=== PATIENT | male | born 1955 ===

== ENCOUNTER → 2021-06-08 15:07 | Outpatient (BNVA) | payer OTHER, SELFPAY | PROVIDERS: PCP Internal Medicine; Visit Provider Hospitalist ==

== ENCOUNTER 2022-04-19 08:47 | Outpatient (REF) | payer OTHER, SELFPAY ==
--- NOTE | 2022-04-19 15:48 | PFT_ITS ---
INDICATION: Dyspnea. SPIROMETRY: The FEV1 to FVC of 63% with an FEV1 of 2.92 L, which is 76% predicted and FVC of 4.67 L, which is 90% predicted. No significant response to bronchodilators noted. To note, the FEF 25-75 decreased to 32% predicted. Significant with small airways disease. The maximum voluntary ventilation 67% predicted. LUNG VOLUMES: Total lung capacity 103% predicted with residual volume 122% predicted. DIFFUSION CAPACITY: 1. DLCO 39% predicted. 2. PFT on 2020. INTERPRETATION: There is an obstructive ventilatory defect consistent with moderate COPD. The patient did have significant small airways disease, although no significant response to bronchodilators noted. There is a mild decrease in maximum voluntary ventilation, secondary to deconditioning. In addition to that, the patient does have a trend of air trapping due to the COPD and a severe diffusion impairment. When compared to 2020, there is a significant decrease in the FVC, significant decrease in the FEV1, a trend decrease in the total lung capacity, and no significant change in the diffusion capacity. Clinical correlation warranted. MD ANNALEE Medeiros/MODL / [id number]
== END 2022-04-19 08:48 | disposition home or self-care (01) ==
LOC: HO.RESP 08:47
PROVIDERS: PCP Internal Medicine; Visit Provider Hospitalist
DX: J44.9 Chronic obstructive pulmonary disease, unspecified (principal); R91.8 Other nonspecific abnormal finding of lung field; C85.90 Non-Hodgkin lymphoma, unspecified, unspecified site
CPT/HCPCS: 94060; 94727; 94729

== ENCOUNTER → 2023-03-31 08:46 | Outpatient (BNVA) | payer OTHER, SELFPAY | PROVIDERS: PCP Internal Medicine; Visit Provider Nurse Practitioner Family | DX: J41.8 Mixed simple and mucopurulent chronic bronchitis (principal); R06.00 Dyspnea, unspecified | CPT/HCPCS: 94618 ==

== ENCOUNTER → 2023-04-14 09:52 | Outpatient (BNVA) | payer OTHER, SELFPAY | PROVIDERS: PCP Internal Medicine; Visit Provider Hospitalist ==

== ENCOUNTER 2023-04-18 09:58 | Outpatient (REF) | payer OTHER, SELFPAY ==
--- NOTE | 2023-04-18 10:47 | PFT_ITS ---
FLOWS: 1. FEV1 84% of predicted at 3.12 L. 2. FVC 102% of predicted at 5.04 L. 3. FEV1 to FVC ratio of 0.62. 4. No bronchodilator testing was performed as patient used bronchodilator prior to testing. LUNG VOLUMES: 1. Total lung capacity 106% of predicted at 7.92 L. 2. Residual volume 106% of predicted at 2.64 L. 3. Slow vital capacity 106% of predicted at 5.28 L. 4. Expiratory reserve volume 70% of predicted at 1.02 L. 5. Diffusion capacity is moderately decreased. In comparison to pulmonary function test performed on April of 2022, FEV1 has improved by 0.20 L; FVC has increased by 0.37 L; total lung capacity was without significant changes; residual volume has decreased by 0.44 L; slow vital capacity has increased by 0.47 L; expiratory reserve volume has increased by 0.32 L; diffusion capacity has increased by 1.54 mL/minute per mmHg. IMPRESSION: Mild obstructive ventilatory defect. Bronchodilator testing was not performed as patient had bronchodilator before testing. Decreased diffusion capacity, suggests emphysema. Elvin Billy MD AP/MODL / [id number]
== END 2023-04-18 09:59 | disposition home or self-care (01) ==
LOC: HO.RESP 09:58
PROVIDERS: PCP Internal Medicine; Visit Provider Hospitalist
DX: R91.8 Other nonspecific abnormal finding of lung field (principal)
CPT/HCPCS: 94010; 94727; 94729

== ENCOUNTER 2023-06-09 15:31 | Outpatient (AMB) | payer OTHER, SELFPAY ==
[2023-06-09 15:33] VITALS: BP 138/62; PULSE 83; O2SAT 83; BMI 39.3
--- NOTE | 2023-06-09 15:33 | MHC.OFFVIS ---
Intake Vital Signs 06/09/23 15:33 Height 6 ft Weight 289 lb 14.526 oz BMI 39.3 BP 138/62 Blood Pressure Location Lt brachial Position Sitting Pulse 83 Pulse Source Pulse Oximeter Pulse Oximetry (%) 83 L Oxygen Delivery Method Room Air Intake Visit Reasons: [facility] - 06/26 Intake Note: Pt is going for hip replacement surgery and needs clearance. Shortness of breath on exertion. Allergies Penicillins Allergy (Verified 06/09/23 15:38) Unknown HPI [facility] - [facility] - 06/26 HPI Details Benton is a pleasant 67 year old male with a past medical history of COPD, pulmonary nodules, LEONIDAS on CPAP and Chronic Lymphocytic Lymphoma. Today he presents for perioperative pulmonary evaluation for a right total hip replacement scheduled for 06/26/[address] [place] [address] Shrestha. Patient has had recent PFT that shows moderate decrease in diffusion capacity. Full report below. At baseline, his symptoms are reasonably controlled on Trelegy and he rarely uses his albuterol. He denies any shortness of breath, wheezing or cough. His last COPD exacerbation was two months ago. He was initially treated with a zpak and symptoms quickly returned, then was prescribed doxycycline with complete resolution of symptoms. He has been using supplemental oxygen with exertion since. [facility] Medical History (Updated 06/13/23 @ 12:24 by Tona Mooney NP) COPD (chronic obstructive pulmonary disease) Lung mass Lymphadenopathy Lymphoma LEONIDAS on CPAP Pulmonary nodules Social History (Updated 06/09/23 @ 15:39 by Tracy Ibrahim CMA) Patient Tobacco Use Status: Current everyday Tobacco user Cigarette Packs Per Day: 1 Review of Systems Const Denies chills, Denies excessive sweating, Denies fever(s), Denies headache(s) and Denies night sweats Eyes Denies dry eyes, Denies irritation and Denies itchy eyes ENT Reports Normal hearing present, Denies headache(s), Denies nasal congestion, Denies nasal discharge, Denies post nasal drip and Denies sore throat Card Denies leg edema, Denies orthopnea and Denies paroxysmal nocturnal dyspnea Resp Denies hemoptysis, Denies pain on inspiration, Denies pain with cough, Denies stridor and Denies wheezing Musc Denies myalgias Neuro Reports Normal hearing present and Denies headache(s) Endo Denies excessive sweating Aller/Immun Denies itchy eyes, Denies seasonal rhinorrhea and Denies wheezing Physical Exam Vital Signs: Last Vital Signs Pulse 83 06/09/23 15:33 BP 138/62 06/09/23 15:33 Pulse Ox 83 L 06/09/23 15:33 Oxygen Delivery Method Room Air 06/09/23 15:33 BMI result Body Mass Index 39.3 Const General: cooperative, comfortable, no acute distress, well developed and alert Nutritional Appearance: obese Orientation/consciousness: patient oriented x3 HEENT Head: Yes normal to inspection, Yes normocephalic and Yes atraumatic Ears: hearing grossly normal bilaterally and external ears normal Eyes General: appearance normal, both eyes and all related structures Eyelids: Yes eyelids normal Sclerae: sclerae normal EOM: EOMs intact bilaterally Neck Neck: Yes normal visual inspection Chest Chest palpation & inspection: normal inspection of the chest Resp Effort & Inspection: normal respiratory effort, able to speak in complete sentences, no audible wheezes, no stridor, not tachypneic, no tripod positioning and no use of accessory muscles Auscultation: diminished lung sounds Cardio Rate: regular rate Rhythm: regular rhythm Skin Other: warm, dry General skin exam: no rashes or lesions noted Neuro General: patient oriented x3 Cranial nerves: Yes Normal hearing present Cognition (Neuro): normal cognition Gait exam (Neuro): Normal gait present Extrem General: Yes normal to inspection, Yes no clubbing, cyanosis or edema and Yes no pedal edema Psych Appearance: grossly normal and well kempt Speech and movement: Normal speech and movement present and Clear speech present Affect: normal affect Attitude: cooperative Thought process: Normal thought process present Thought content: Normal thought content present Insight: Good insight present (Psych) Judgement: Good judgement present (Psych) Results Reviewed Results Reviewed: Assessment & Plan Assessment & Plan (1) Preop pulmonary/respiratory exam: Code(s): Z01.811 - Encounter for preprocedural respiratory examination (2) COPD (chronic obstructive pulmonary disease): Code(s): J44.9 - Chronic obstructive pulmonary disease, unspecified Qualifiers: COPD type: chronic bronchitis Chronic bronchitis type: mixed simple and mucopurulent Qualified Code(s): J41.8 - Mixed simple and mucopurulent chronic bronchitis (3) LEONIDAS on CPAP: Code(s): G47.33 - Obstructive sleep apnea (adult) (pediatric); Z99.89 - Dependence on other enabling machines and devices (4) Lymphoma: Code(s): C85.90 - Non-Hodgkin lymphoma, unspecified, unspecified site Qualifiers: Follicular lymphoma type: unspecified follicular type Lymphoma site: intrathoracic nodes Lymphoma type: non-Hodgkin Non-Hodgkin lymphoma type: follicular Qualified Code(s): C82.92 - Follicular lymphoma, unspecified, intrathoracic lymph nodes (5) Pulmonary nodules: Code(s): R91.8 - Other nonspecific abnormal finding of lung field Plan Benton presents for perioperative pulmonary evaluation. He had recent COPD exacerbation two months ago and after 6MWT performed at the last visit, he was advised to wear 2L oxygen with exertion. Unfortunately, he admits to not using his oxygen as it interferes with his ability to work.?Attempted to educate patient on importance of oxygen. Given his noncompliance for proposed oxygen supplementation that would minimize his overall risk, combined with history of COPD with moderate decrease in diffusion capacity, he is at high risk of perioperative complications, including but not limited to prolonged ventilatory support. Consider extubation to BiPAP and utilization of perioperative nebulized bronchodilators. Avoid general anesthesia, if possible. All questions were answered and patient in agreement of plan. Will follow up in October with Dr. Rangel for his regularly scheduled appointment or sooner if needed. Coding Level of Care Code Est Pt Level 4 (88391) Diagnoses Preop pulmonary/respiratory exam Z01.811 COPD (chronic obstructive pulmonary disease) J41.8 COPD type: chronic bronchitis Chronic bronchitis type: mixed simple and mucopurulent LEONIDAS on CPAP G47.33; Z99.89 Lymphoma C82.92 Follicular lymphoma type: unspecified follicular type Lymphoma site: intrathoracic nodes Lymphoma type: non-Hodgkin Non-Hodgkin lymphoma type: follicular Pulmonary nodules R91.8
== END 2023-06-09 16:30 | disposition home or self-care (01) ==
PROVIDERS: PCP Internal Medicine; Visit Provider Nurse Practitioner Family
DX: Z01.811 Encounter for preprocedural respiratory examination (principal); J41.8 Mixed simple and mucopurulent chronic bronchitis; G47.33 Obstructive sleep apnea (adult) (pediatric); Z99.89 Dependence on other enabling machines and devices; C82.92 Follicular lymphoma, unspecified, intrathoracic lymph nodes; R91.8 Other nonspecific abnormal finding of lung field
CPT/HCPCS: 99214

== ENCOUNTER → 2023-06-09 15:31 | Outpatient (BNVA) | payer OTHER, SELFPAY | PROVIDERS: PCP Internal Medicine; Visit Provider Nurse Practitioner Family ==

== ENCOUNTER 2023-09-15 11:06 | Outpatient (AMB) | payer OTHER, SELFPAY ==
[2023-09-15 13:53] VITALS: BP 138/64; PULSE 81; O2SAT 94; BMI 39.2
--- NOTE | 2023-09-15 13:53 | MHC.OFFVIS ---
Intake Vital Signs 09/15/23 13:53 Height 6 ft Weight 131 kg BMI 39.2 BP 138/64 Blood Pressure Location Rt brachial Position Sitting Pulse 81 Pulse Source Pulse Oximeter Pulse Oximetry (%) 94 Oxygen Delivery Method Room Air Intake Visit Reasons: 6 minute walk Allergies Penicillins Allergy (Verified 09/15/23 13:53) Unknown Medication List - Last Reconciled 09/15/23 by Erica Chowdhury LPN albuterol sulfate 90 mcg/actuation inhalation antiarthritic combination no.2 (glucosamine-chondroitin) mg PO aspirin 81 mg PO DAILY atorvastatin 40 mg PO cholecalciferol (vitamin D3) 50 mcg PO DAILY doxycycline hyclate 100 mg PO BID 10 days oclwkfutrrx-gbuglwjmx-drksqxzw 100-62.5-25 mcg (Trelegy Ellipta) 1 inh inhalation DAILY metoprolol tartrate 25 mg PO BID multivitamin 1 tab PO DAILY prednisone 10 mg PO DIRECTED prednisone PO daily; Take 2 tabs daily x 5 days, then 1 tablet daily x 5 days 10 days PFSH Medical History (Updated 06/13/23 @ 12:24 by Tona Mooney NP) Lung mass LEONIDAS on CPAP COPD (chronic obstructive pulmonary disease) Lymphadenopathy Pulmonary nodules Lymphoma Social History (Updated 06/09/23 @ 15:39 by Tracy Ibrahim CMA) Patient Tobacco Use Status: Current everyday Tobacco user Cigarette Packs Per Day: 1 Office Procedures 6 Minute Walk Time:: 11:30 SPO2 % at rest: 94 Pulse at rest: 81 SPO2 % during excercise: 88 Pulse during excercise: 92 SPO2 % after excercise: 94 Pulse after excercise: 82 Distance in yards walked: 120 Fang Score: 5 Performance Observations:: Benton walked on level ground with the assistance of a walker, he walked for 2 mins before his SPO2 decreased to 88% on room air. O2 started at pulsed setting#2 and his SPO2 recovered to 91% his SPO2 again decreased to 88% on setting #2 and was increased to setting #3. He maintained his SPO2 92-94% on pulsed O2 setting #3. 85268 - 6 Minute Walk Assessment & Plan Assessment & Plan (1) COPD (chronic obstructive pulmonary disease): Code(s): J44.9 - Chronic obstructive pulmonary disease, unspecified Qualifiers: COPD type: chronic bronchitis Chronic bronchitis type: mixed simple and mucopurulent Qualified Code(s): J41.8 - Mixed simple and mucopurulent chronic bronchitis Orders: Orders AMB 6 minute walk Today J44.9 - Chronic obstructive pulmonary disease, unspecified Coding Level of Care Code Established Pt Est Pt Level 1 (83785) Patient Type Established Diagnoses Mixed simple and mucopurulent chronic bronchitis J41.8 COPD type: chronic bronchitis Chronic bronchitis type: mixed simple and mucopurulent CPT Codes Coding ([id number]) Comment NURSE VISIT ONLY
[2023-09-15 13:56] VITALS: PULSE 81; O2SAT 94
== END 2023-09-15 11:44 | disposition home or self-care (01) ==
PROVIDERS: PCP Internal Medicine; Visit Provider Hospitalist
DX: J41.8 Mixed simple and mucopurulent chronic bronchitis (principal)

== ENCOUNTER → 2023-09-15 11:06 | Outpatient (BNVA) | payer OTHER, SELFPAY | PROVIDERS: PCP Internal Medicine; Visit Provider Hospitalist | DX: J41.8 Mixed simple and mucopurulent chronic bronchitis (principal); R91.8 Other nonspecific abnormal finding of lung field; G47.33 Obstructive sleep apnea (adult) (pediatric); F17.210 Nicotine dependence, cigarettes, uncomplicated; Z79.52 Long term (current) use of systemic steroids; Z99.89 Dependence on other enabling machines and devices | CPT/HCPCS: 94618; 99211 ==

== ENCOUNTER 2023-10-20 09:50 | Outpatient (AMB) | payer OTHER, SELFPAY ==
--- NOTE | 2023-10-20 09:59 | A.OFFVIS_ITS ---
Intake Vital Signs 10/20/23 10:00 Height 6 ft Weight 284 lb BMI 38.5 BP 110/62 Blood Pressure Location Lt brachial Position Sitting Pulse 60 Pulse Source Pulse Oximeter Pulse Oximetry (%) 92 Oxygen Delivery Method Room Air Intake Visit Reasons: COPD Rotary Adjuster Required: No Allergies Penicillins Allergy (Verified 10/20/23 10:02) Unknown HPI HPI Comments History of Present Illness Details The patient is a 68-year-old gentleman with a known history of lymphoma with lymphadenopathy and pulmonary nodules. The patient also has history of COPD currently on Advair. He was last evaluated back in late spring when he had a CT scan of the chest at [facility] in April of 2019 demonstrating multiple pulmonary nodules largest 1 measuring 9 mm in size. Also had the stable lymphadenopathy present. He continues to follow up closely with hematology oncology regarding the blood dyscrasia. At this point everything has been stable. He has not required any therapy. We talked about smoking. He continues to smoke although he is motivated to quitting. He is slowly cutting down. In the meantime the pulmonary nodules appear to be stable except for 1 in the right upper lobe demonstrating some hazy subsided appearance measuring 6 by 8 mm. This will require sooner CT scan 6 months. The patient could not have contrast because he has some renal insufficiency due to the issues going on with his bladder. 06/08/2021 the patient is here for a [facility]. Overall the patient been okay. He has been complaining worsening dyspnea exertion as well as chest tightness and chest congestion. Qarz-hy-kvekvkez in severity. He does use Advair with good response. He also has a short-acting beta agonist. On examination he does have increase wheezing and rhonchi which could be related to the poor air quality. This point is reasonable to try to optimize his respiratory therapy by switching him to Trelegy. In the meantime he did undergo a CT scan chest [facility] which demonstrated again the pulmonary nodules which appear to be unchanged from last year. He also continues to have lymphadenopathy. The patient does carry a diagnosis lymphoma and at this point is require any therapy. He recently saw his director internal communications and did additional this. It is reassuring the findings on his CT scan have changed. Based on his significant disease patient does need to continue serial yearly CAT scans. 09/30/2022 the patient is here for a [facility] visit. The patient overall is doing well. Continues to have dyspnea on exertion. Primarily when going up a flight of stairs. Moderate severity. But otherwise is does well when he is on flat ground. Typically walks a couple miles a day. He does use the Trelegy. This appears to be affecting beneficial. Recently he did undergo a CT scan of the chest demonstrating stable pulmonary nodules since 2018 suggesting benign processes and is mediastinal lymphadenopathy appears to be also stable without any evidence of any active blood dyscrasia. The patient also has been using CPAP. The CPAP therapy he has been using for many years. The CPAP has been affecting beneficial. He has been using with good adherence. He does use it for more than 4 hours a night. However now the machine is making noises that are not at normal. He tried multiple things including changing the water container as adjusting the tubing in the machine but is still continues to make some abnormal sounds. It appears machine is older than 5 years. Machine is breaking down and now function appropriately. He needs to get a replacement machine. Will request it from his current [employer] company. He is getting supplies regularly. As far as that seems we talked about considering the Prevnar 20 vaccine since he is 67 in high risk for strep pneumonia. The patient is reluctant to get at this time. Will consider it. We also reviewed his PFTs demonstrating a moderate COPD also with moderate to severe diffusion impairment. The patient is unlikely to qualify for oxygen at this time. Will continue to monitor the diffusing capacity. 04/14/2023 the patient is here for A [facility] low-up visit. The patient recently was evaluated for acute respiratory failure in the office. The patient likely had a severe COPD exacerbation secondary to lower respiratory infection. 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 Overall he is starting to feel better. The patient did have an abnormal CXR, therefore, we had him get hius CT chest sooner. Does have a smignificant RUL mass which is concerning. Also has lymphadenopathy. Will have him undergo a PET scan at this time. 10/20/2023 the patient is here for a pulm onary follow-up visit. He recovered well after his hip replacement. She is to be walking well on it. Still having significant dyspnea on exertion. Moderate severity. He does have the oxygen tanks. He does have the small be cylinders with the conserving valve. He does use them with good portability outside of the home. Although he would benefit from a portable oxygen concentrator in the near future if he continues to require multiple tanks and specially when go back to work for increased portability. The patient has been using the Trelegy inhaler with good effect. We did review his last imaging study was a PET scan demonstrating minimal FDG activity of the pulmonary nodule. Will go ahead and repeat the CT scan in 3 months time to further address the pulmonary nodules in the concerns for cancer. He seems to be doing well from the lymphoma standpoint. He is reluctant to get vaccines although he is willing to get the Prevnar 20 today. [facility] Medical History (Updated 06/13/23 @ 12:24 by Tona Mooney NP) Lung mass LEONIDAS on CPAP COPD (chronic obstructive pulmonary disease) Lymphadenopathy Pulmonary nodules Lymphoma Social History Patient Tobacco Use Status: Current everyday Tobacco user Cigarette Packs Per Day: 1 Review of Systems Const Denies night sweats ENT Denies change in voice, Denies lip swelling, Denies mouth pain, Reports nasal congestion, Reports nasal discharge and Denies tongue swelling Card Denies chest pain and Reports dyspnea on exertion Resp Denies chest congestion, Reports cough, Reports dyspnea on exertion and Denies wheezing GI Denies abdominal pain Musc Denies no additional complaints Neuro Denies Neuro-related abnormal movements Psych Denies no additional complaints Singh/Lymph Denies easy bleeding and Denies lymphadenopathy Aller/Immun Denies lip swelling, Denies tongue swelling and Denies wheezing Physical Exam Vital Signs: Last Vital Signs Pulse 60 10/20/23 10:00 BP 110/62 10/20/23 10:00 Pulse Ox 92 10/20/23 10:00 Oxygen Delivery Method Room Air 10/20/23 10:00 BMI result Body Mass Index 38.5 Const General: alert Neck Neck: Yes normal visual inspection, Yes full ROM and Yes no lymphadenopathy Chest Chest palpation & inspection: normal inspection of the chest Resp Effort & Inspection: normal respiratory effort Auscultation: diminished lung sounds Cardio Rate: regular rate Rhythm: regular rhythm Heart sounds: S1 normal heart sound present and S2 normal heart sound present GI Palpation (GI): Soft to palpation and nontender Auscultation: normal bowel sounds Skin General skin exam: rashes and/or lesions noted Immunizations pneumoc 20-christina conj-dip cr(PF) 0.5 mL IM syringe Performing Provider: Bernabe Rangel MD Performing Location: [facility] Pulmonology Services Administered by: Steph Weaver LPN on 10/20/23 10:40 Dose Route Admin Location Dispensed Lot Number Expiration Date NDC Layout Mechanic 0.5 mL IM Left Deltoid 0.5 mL [id number] 06/12/24 1602-8422-00 [employer] VIS Given Date VIS Provided VIS Publication Date 10/20/23 Single Vaccine 21 Eligibility Eligibility Date Funding Source Not [facility] Eligible 10/20/23 Private Assessment & Plan Assessment & Plan (1) Lung mass: Code(s): R91.8 - Other nonspecific abnormal finding of lung field (2) Lymphoma: Code(s): C85.90 - Non-Hodgkin lymphoma, unspecified, unspecified site Qualifiers: Follicular lymphoma type: unspecified follicular type Lymphoma site: intrathoracic nodes Lymphoma type: non-Hodgkin Non-Hodgkin lymphoma type: follicular Qualified Code(s): C82.92 - Follicular lymphoma, unspecified, intrathoracic lymph nodes (3) Pulmonary nodules: Code(s): R91.8 - Other nonspecific abnormal finding of lung field (4) Lymphadenopathy: Code(s): R59.1 - Generalized enlarged lymph nodes (5) COPD (chronic obstructive pulmonary disease): Code(s): J44.9 - Chronic obstructive pulmonary disease, unspecified Qualifiers: COPD type: chronic bronchitis Chronic bronchitis type: mixed simple and mucopurulent Qualified Code(s): J41.8 - Mixed simple and mucopurulent chronic bronchitis (6) LEONIDAS on CPAP: Code(s): G47.33 - Obstructive sleep apnea (adult) (pediatric); Z99.89 - Dependence on other enabling machines and devices Plan continue Trelegy SUZY as needed Repeat CT chest in 3 months continue APAP continue oxygen supplementation with activity 2-3L/pulse F/U 3 months Orders: Orders CT chest wo IV con 3 Months R91.8 - Other nonspecific abnormal finding of lung field Pneumococcal 20 Immunization Today J44.9 - Chronic obstructive pulmonary disease, unspecified Coding Level of Care Code Est Pt Level 4 (17482) Diagnoses Lung mass R91.8 Follicular lymphoma of intrathoracic lymph nodes, unspecified follicular lymphoma type C82.92 Follicular lymphoma type: unspecified follicular type Lymphoma site: intrathoracic nodes Lymphoma type: non-Hodgkin Non-Hodgkin lymphoma type: follicular Pulmonary nodules R91.8 Lymphadenopathy R59.1 Mixed simple and mucopurulent chronic bronchitis J41.8 COPD type: chronic bronchitis Chronic bronchitis type: mixed simple and mucopurulent LEONIDAS on CPAP G47.33; Z99.89 Time Spent (min) 17
[2023-10-20 10:00] VITALS: BP 110/62; PULSE 60; O2SAT 92; BMI 38.5
== END 2023-10-20 10:41 | disposition home or self-care (01) ==
PROVIDERS: PCP Internal Medicine; Visit Provider Hospitalist
DX: R91.8 Other nonspecific abnormal finding of lung field (principal); C82.92 Follicular lymphoma, unspecified, intrathoracic lymph nodes; R59.1 Generalized enlarged lymph nodes; J41.8 Mixed simple and mucopurulent chronic bronchitis; G47.33 Obstructive sleep apnea (adult) (pediatric); Z99.89 Dependence on other enabling machines and devices; J44.9 Chronic obstructive pulmonary disease, unspecified
CPT/HCPCS: 99214

== ENCOUNTER → 2023-10-20 09:50 | Outpatient (BNVA) | payer OTHER, SELFPAY | PROVIDERS: PCP Internal Medicine; Visit Provider Hospitalist | DX: R91.8 Other nonspecific abnormal finding of lung field (principal); C82.92 Follicular lymphoma, unspecified, intrathoracic lymph nodes; R59.1 Generalized enlarged lymph nodes; J41.8 Mixed simple and mucopurulent chronic bronchitis; G47.33 Obstructive sleep apnea (adult) (pediatric); Z99.89 Dependence on other enabling machines and devices; Z23 Encounter for immunization | CPT/HCPCS: 90471; 90677 ==

== ENCOUNTER 2024-02-21 09:22 | Outpatient (AMB) | payer OTHER, SELFPAY ==
[2024-02-21 09:32] VITALS: PULSE 54; O2SAT 92; BMI 38.0
--- NOTE | 2024-02-21 09:32 | MHC.OFFVIS ---
Intake Vital Signs 02/21/24 09:32 Height 6 ft Weight 280 lb BMI 38.0 Pulse 54 Pulse Source Pulse Oximeter Pulse Oximetry (%) 92 Oxygen Delivery Method Room Air Intake Visit Reasons: COPD Process Coordinator Required: No Allergies Penicillins Allergy (Verified 02/21/24 09:34) Unknown HPI HPI Comments History of Present Illness Details The patient is a 68-year-old gentleman with a known history of lymphoma with lymphadenopathy and pulmonary nodules. The patient also has history of COPD currently on Advair. He was last evaluated back in late spring when he had a CT scan of the chest at [facility] in April of 2019 demonstrating multiple pulmonary nodules largest 1 measuring 9 mm in size. Also had the stable lymphadenopathy present. He continues to follow up closely with hematology oncology regarding the blood dyscrasia. At this point everything has been stable. He has not required any therapy. We talked about smoking. He continues to smoke although he is motivated to quitting. He is slowly cutting down. In the meantime the pulmonary nodules appear to be stable except for 1 in the right upper lobe demonstrating some hazy subsided appearance measuring 6 by 8 mm. This will require sooner CT scan 6 months. The patient could not have contrast because he has some renal insufficiency due to the issues going on with his bladder. 06/08/2021 the patient is here for a pulmonary follow-up visit. Overall the patient been okay. He has been complaining worsening dyspnea exertion as well as chest tightness and chest congestion. [id number] in severity. He does use Advair with good response. He also has a short-acting beta agonist. On examination he does have increase wheezing and rhonchi which could be related to the poor air quality. This point is reasonable to try to optimize his respiratory therapy by switching him to Trelegy. In the meantime he did undergo a CT scan chest [facility] which demonstrated again the pulmonary nodules which appear to be unchanged from last year. He also continues to have lymphadenopathy. The patient does carry a diagnosis lymphoma and at this point is require any therapy. 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 It is reassuring the findings on his CT scan have changed. Based on his significant disease patient does need to continue serial yearly CAT scans. 09/30/2022 the patient is here for a pulmonary follow-up visit. The patient overall is doing well. Continues to have dyspnea on exertion. Primarily when going up a flight of stairs. Moderate severity. But otherwise is does well when he is on flat ground. Typically walks a couple miles a day. He does use the Trelegy. This appears to be affecting beneficial. Recently he did undergo a CT scan of the chest demonstrating stable pulmonary nodules since 2018 suggesting benign processes and is mediastinal lymphadenopathy appears to be also stable without any evidence of any active blood dyscrasia. The patient also has been using CPAP. The CPAP therapy he has been using for many years. The CPAP has been affecting beneficial. He has been using with good adherence. He does use it for more than 4 hours a night. However now the machine is making noises that are not at normal. He tried multiple things including changing the water container as adjusting the tubing in the machine but is still continues to make some abnormal sounds. It appears machine is older than 5 years. Machine is breaking down and now function appropriately. He needs to get a replacement machine. Will request it from his current [employer] company. He is getting supplies regularly. As far as that seems we talked about considering the Prevnar 20 vaccine since he is 67 in high risk for strep pneumonia. The patient is reluctant to get at this time. Will consider it. We also reviewed his PFTs demonstrating a moderate COPD also with moderate to severe diffusion impairment. The patient is unlikely to qualify for oxygen at this time. Will continue to monitor the diffusing capacity. 04/14/2023 the patient is here for A follow-up visit. The patient recently was evaluated for acute respiratory failure in the office. The patient likely had a severe COPD exacerbation secondary to lower respiratory infection. 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 Overall he is starting to feel better. The patient did have an abnormal CXR, therefore, we had him get hius CT chest sooner. Does have a smignificant RUL mass which is concerning. Also has lymphadenopathy. Will have him undergo a PET scan at this time. 10/20/2023 the patient is here for a pulmonary follow-up visit. He recovered well after his hip replacement. She is to be walking well on it. Still having significant dyspnea on exertion. Moderate severity. He does have the oxygen tanks. He does have the small be cylinders with the conserving valve. He does use them with good portability outside of the home. Although he would benefit from a portable oxygen concentrator in the near future if he continues to require multiple tanks and specially when go back to work for increased portability. The patient has been using the Trelegy inhaler with good effect. We did review his last imaging study was a PET scan demonstrating minimal FDG activity of the pulmonary nodule. Will go ahead and repeat the CT scan in 3 months time to further address the pulmonary nodules in the concerns for cancer. He seems to be doing well from the lymphoma standpoint. He is reluctant to get vaccines although he is willing to get the Prevnar 20 today. 02/21/2024 the patient is here for a pulmonary follow-up visit. Overall the patient has been doing well. His respiratory status appears to be stable. He continues to work full-time. Sometimes he does check his oxygen is low. At rest his oxygen is above 90% which is reassuring. Today was 92%. He continues uses Trelegy inhaler with good effect. His last imaging study was a PET scan back in April 2023 demonstrating stable pulmonary nodules. Minimal FDG activity. Will plan to repeat the CT scan in April of 2024 a year after the PET scan. The patient denies any weight loss night sweats. He is recovered now from his hip surgery. [facility] Medical History (Updated 06/13/23 @ 12:24 by Tona Mooney NP) Lung mass LEONIDAS on CPAP COPD (chronic obstructive pulmonary disease) Lymphadenopathy Pulmonary nodules Lymphoma Social History Patient Tobacco Use Status: Current everyday Tobacco user Cigarette Packs Per Day: 1 Review of Systems Const Denies night sweats ENT Denies change in voice, Denies lip swelling, Denies mouth pain, Reports nasal congestion, Reports nasal discharge and Denies tongue swelling Card Denies chest pain and Reports dyspnea on exertion Resp Denies chest congestion, Reports cough, Reports dyspnea on exertion and Denies wheezing GI Denies abdominal pain Musc Denies no additional complaints Neuro Denies Neuro-related abnormal movements Psych Denies no additional complaints Singh/Lymph Denies easy bleeding and Denies lymphadenopathy Aller/Immun Denies lip swelling, Denies tongue swelling and Denies wheezing Physical Exam Vital Signs: Last Vital Signs Pulse 54 02/21/24 09:32 Pulse Ox 92 02/21/24 09:32 Oxygen Delivery Method Room Air 02/21/24 09:32 BMI result Body Mass Index 38.0 Const General: alert Neck Neck: Yes normal visual inspection, Yes full ROM and Yes no lymphadenopathy Chest Chest palpation & inspection: normal inspection of the chest Resp Effort & Inspection: normal respiratory effort Auscultation: diminished lung sounds Cardio Rate: regular rate Rhythm: regular rhythm Heart sounds: S1 normal heart sound present and S2 normal heart sound present GI Palpation (GI): Soft to palpation and nontender Auscultation: normal bowel sounds Skin General skin exam: rashes and/or lesions noted Assessment & Plan Assessment & Plan (1) Lung mass: Code(s): R91.8 - Other nonspecific abnormal finding of lung field (2) Lymphoma: Code(s): C85.90 - Non-Hodgkin lymphoma, unspecified, unspecified site Qualifiers: Follicular lymphoma type: unspecified follicular type Lymphoma site: intrathoracic nodes Lymphoma type: non-Hodgkin Non-Hodgkin lymphoma type: follicular Qualified Code(s): C82.92 - Follicular lymphoma, unspecified, intrathoracic lymph nodes (3) Pulmonary nodules: Code(s): R91.8 - Other nonspecific abnormal finding of lung field (4) Lymphadenopathy: Code(s): R59.1 - Generalized enlarged lymph nodes (5) COPD (chronic obstructive pulmonary disease): Code(s): J44.9 - Chronic obstructive pulmonary disease, unspecified Qualifiers: COPD type: chronic bronchitis Chronic bronchitis type: mixed simple and mucopurulent Qualified Code(s): J41.8 - Mixed simple and mucopurulent chronic bronchitis (6) LEONIDAS on CPAP: Code(s): G47.33 - Obstructive sleep apnea (adult) (pediatric); Z99.89 - Dependence on other enabling machines and devices Plan continue Trelegy SUZY as needed Repeat CT chest in 04/2024 continue APAP with 2 L/min, requesting CPAP download continue oxygen supplementation with activity 2-3L/pulse F/U 6 months Orders: Orders CT chest wo IV con 04/24/24 R91.8 - Other nonspecific abnormal finding of lung field Coding Level of Care Code Est Pt Level 4 (23808) Diagnoses Lung mass R91.8 Follicular lymphoma of intrathoracic lymph nodes, unspecified follicular lymphoma type C82.92 Follicular lymphoma type: unspecified follicular type Lymphoma site: intrathoracic nodes Lymphoma type: non-Hodgkin Non-Hodgkin lymphoma type: follicular Pulmonary nodules R91.8 Lymphadenopathy R59.1 Mixed simple and mucopurulent chronic bronchitis J41.8 COPD type: chronic bronchitis Chronic bronchitis type: mixed simple and mucopurulent LEONIDAS on CPAP G47.33; Z99.89 Time Spent (min) 17
== END 2024-02-21 10:08 | disposition home or self-care (01) ==
PROVIDERS: PCP Internal Medicine; Visit Provider Hospitalist
DX: R91.8 Other nonspecific abnormal finding of lung field (principal); C82.92 Follicular lymphoma, unspecified, intrathoracic lymph nodes; R59.1 Generalized enlarged lymph nodes; J41.8 Mixed simple and mucopurulent chronic bronchitis; G47.33 Obstructive sleep apnea (adult) (pediatric); Z99.89 Dependence on other enabling machines and devices
CPT/HCPCS: 99214

== ENCOUNTER → 2024-02-21 09:22 | Outpatient (BNVA) | payer OTHER, SELFPAY | PROVIDERS: PCP Internal Medicine; Visit Provider Hospitalist | DX: R91.8 Other nonspecific abnormal finding of lung field (principal) ==

== ENCOUNTER 2024-08-23 09:35 | Outpatient (AMB) | payer OTHER, SELFPAY ==
--- NOTE | 2024-08-23 09:47 | A.OFFVIS_ITS ---
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 The patient also has history of COPD currently on Advair. He was last evaluated back in late spring when he had a CT scan of the chest at [facility] in April of 2019 demonstrating multiple pulmonary nodules largest 1 measuring 9 mm in size. Also had the stable lymphadenopathy present. He continues to follow up closely with hematology oncology regarding the blood dyscrasia. At this point everything has been stable. He has not required any therapy. We talked about smoking. He continues to smoke although he is motivated to quitting. He is slowly cutting down. In the meantime the pulmonary nodules appear to be stable except for 1 in the right upper lobe demonstrating some hazy subsided appearance measuring 6 by 8 mm. This will require sooner CT scan 6 months. The patient could not have contrast because he has some renal insufficiency due to the issues going on with his bladder. 06/08/2021 the patient is here for a pulmonary follow-up visit. Overall the patient been okay. He has been complaining worsening dyspnea exertion as well as chest tightness and chest congestion. [id number] in severity. He does use Advair with good response. He also has a short-acting beta agonist. On examination he does have increase wheezing and rhonchi which could be related to the poor air quality. This point is reasonable to try to optimize his respiratory therapy by switching him to Trelegy. In the meantime he did undergo a CT scan chest [facility] which demonstrated again the pulmonary nodules which appear to be unchanged from last year. He also continues to have lymphadenopathy. The patient does carry a diagnosis lymphoma and at this point is require any therapy. He recently saw his sas clinical programmer and did additional this. It is reassuring the findings on his CT scan have changed. Based on his significant disease patient does need to continue serial yearly CAT scans. 09/30/2022 the patient is here for a pulmonary follow-up visit. The patient overall is doing well. Continues to have dyspnea on exertion. Primarily when going up a flight of stairs. Moderate severity. But otherwise is does well when he is on flat ground. Typically walks a couple miles a day. He does use the Trelegy. This appears to be affecting beneficial. Recently he did undergo a CT scan of the chest demonstrating stable pulmonary nodules since 2018 suggesting benign processes and is mediastinal lymphadenopathy appears to be also stable without any evidence of any active blood dyscrasia. The patient also has been using CPAP. The CPAP therapy he has been using for many years. The CPAP has been affecting beneficial. He has been using with good adherence. He does use it for more than 4 hours a night. However now the machine is making noises that are not at normal. He tried multiple things including changing the water container as adjusting the tubing in the machine but is still continues to make some abnormal sounds. It appears machine is older than 5 years. Machine is breaking down and now function appropriately. He needs to get a replacement machine. Will request it from his current [employer] company. He is getting supplies regularly. As far as that seems we talked about considering the Prevnar 20 vaccine since he is 67 in high risk for strep pneumonia. The patient is reluctant to get at this time. Will consider it. We also reviewed his PFTs demonstrating a moderate COPD also with moderate to severe diffusion impairment. The patient is unlikely to qualify for oxygen at this time. Will continue to monitor the diffusing capacity. 04/14/2023 the patient is here for A follow-up visit. The patient recently was evaluated for acute respiratory failure in the office. The patient likely had a severe COPD exacerbation secondary to lower respiratory infection. 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 Overall he is starting to feel better. The patient did have an abnormal CXR, therefore, we had him get hius CT chest sooner. Does have a smignificant RUL mass which is concerning. Also has lymphadenopathy. Will have him undergo a PET scan at this time. 10/20/2023 the patient is here for a pulmonary follow-up visit. He recovered well after his hip replacement. She is to be walking well on it. Still having significant dyspnea on exertion. Moderate severity. He does have the oxygen tanks. He does have the small be cylinders with the conserving valve. He does use them with good portability outside of the home. Although he would benefit from a portable oxygen concentrator in the near future if he continues to require multiple tanks and specially when go back to work for increased portability. The patient has been using the Trelegy inhaler with good effect. We did review his last imaging study was a PET scan demonstrating minimal FDG activity of the pulmonary nodule. Will go ahead and repeat the CT scan in 3 months time to further address the pulmonary nodules in the concerns for cancer. He seems to be doing well from the lymphoma standpoint. He is reluctant to get vaccines although he is willing to get the Prevnar 20 today. 02/21/2024 the patient is here for a pulmonary follow-up visit. Overall the patient has been doing well. His respiratory status appears to be stable. He continues to work full-time. Sometimes he does check his oxygen is low. At rest his oxygen is above 90% which is reassuring. Today was 92%. He continues uses Trelegy inhaler with good effect. His last imaging study was a PET scan back in April 2023 demonstrating stable pulmonary nodules. Minimal FDG activity. Will plan to repeat the CT scan in April of 2024 a year after the PET scan. The patient denies any weight loss night sweats. He is recovered now from his hip surgery. 08/23/2024 the patient is here for a pulmonary follow-up visit. The patient has been doing well. He continues to work. His oxygen today was 92% again at rest which is reassuring. He still has the oxygen to use with activity. He is also using CPAP at nighttime. The CPAP therapy has been affecting beneficial. We did request a download. His AHI is 0.4. He does use it more than 4 hours a night typically 100% with compliance. He does use the oxygen along with it. We did look at his last CT scan of the chest was back in 05/02/2024 which demonstrated interval resolution of the pneumonia. Pulmonary nodules are stable. Will plan to follow-up in 05/02/[address] scan. If the patient has any worsening symptoms prior to that he will call for an earlier assessment. [facility] Medical History (Updated 06/13/23 @ 12:24 by Tona Mooney NP) Lung mass LEONIDAS on CPAP COPD (chronic obstructive pulmonary disease) Lymphadenopathy Pulmonary nodules Lymphoma Social History Patient Tobacco Use Status: Current everyday Tobacco user Cigarette Packs Per Day: 1 Review of Systems Const Denies night sweats ENT Denies change in voice, Denies lip swelling, Denies mouth pain, Reports nasal congestion, Reports nasal discharge and Denies tongue swelling Card Denies chest pain and Reports dyspnea on exertion Resp Denies chest congestion, Reports cough, Reports dyspnea on exertion and Denies wheezing GI Denies abdominal pain Musc Denies no additional complaints Neuro Denies Neuro-related abnormal movements Psych Denies no additional complaints Singh/Lymph Denies easy bleeding and Denies lymphadenopathy Aller/Immun Denies lip swelling, Denies tongue swelling and Denies wheezing Physical Exam Vital Signs: Last Vital Signs Pulse 47 L 08/23/24 09:49 BP 132/68 08/23/24 09:49 Pulse Ox 92 08/23/24 09:49 Oxygen Delivery Method Room Air 08/23/24 09:49 BMI result Body Mass Index 38.0 Const General: alert Neck Neck: Yes normal visual inspection, Yes full ROM and Yes no lymphadenopathy Chest Chest palpation & inspection: normal inspection of the chest Resp Effort & Inspection: normal respiratory effort Auscultation: diminished lung sounds Cardio Rate: regular rate Rhythm: regular rhythm Heart sounds: S1 normal heart sound present and S2 normal heart sound present GI Palpation (GI): Soft to palpation and nontender Auscultation: normal bowel sounds Skin General skin exam: no rashes or lesions noted Extrem General: No cyanosis Office Procedures Flu Questionnaire Does the patient have a severe egg allergy?: No Does the patient have severe life threatening allergies?: No Does the patient have a fever or illness today?: No Has the patient ever had Guillain-[place] Syndrome?: No Has the patient ever had any past reaction to a flu shot?: No Assessment & Plan Assessment & Plan (1) Lung mass: Code(s): R91.8 - Other nonspecific abnormal finding of lung field Category: Medical (2) Lymphoma: Code(s): C85.90 - Non-Hodgkin lymphoma, unspecified, unspecified site Category: Medical Qualifiers: Follicular lymphoma type: unspecified follicular type Lymphoma site: intrathoracic nodes Lymphoma type: non-Hodgkin Non-Hodgkin lymphoma type: follicular Qualified Code(s): C82.92 - Follicular lymphoma, unspecified, intrathoracic lymph nodes (3) Pulmonary nodules: Code(s): R91.8 - Other nonspecific abnormal finding of lung field Category: Medical (4) Lymphadenopathy: Code(s): R59.1 - Generalized enlarged lymph nodes Category: Medical (5) COPD (chronic obstructive pulmonary disease): Code(s): J44.9 - Chronic obstructive pulmonary disease, unspecified Category: Medical Qualifiers: COPD type: chronic bronchitis Chronic bronchitis type: mixed simple and mucopurulent Qualified Code(s): J41.8 - Mixed simple and mucopurulent chronic bronchitis (6) LEONIDAS on CPAP: Code(s): G47.33 - Obstructive sleep apnea (adult) (pediatric); Z99.89 - Dependence on other enabling machines and devices Category: Medical Plan continue Trelegy SUZY as needed Repeat CT chest in 04/2025 continue APAP with 2 L/min, requesting CPAP download continue oxygen supplementation with activity 2-3L/pulse F/U 12 months Orders: Orders Influenza [id number] Immunization 08/23/24 J41.8 - Mixed simple and mucopurulent chronic bronchitis Coding Level of Care Code Est Pt Level 4 (52648) Diagnoses Lung mass R91.8 Follicular lymphoma of intrathoracic lymph nodes, unspecified follicular lymphoma type C82.92 Follicular lymphoma type: unspecified follicular type Lymphoma site: intrathoracic nodes Lymphoma type: non-Hodgkin Non-Hodgkin lymphoma type: follicular Pulmonary nodules R91.8 Lymphadenopathy R59.1 Mixed simple and mucopurulent chronic bronchitis J41.8 COPD type: chronic bronchitis Chronic bronchitis type: mixed simple and mucopurulent LEONIDAS on CPAP G47.33; Z99.89 Time Spent (min) 17
[2024-08-23 09:49] VITALS: BP 132/68; PULSE 47; O2SAT 92; BMI 38.0
== END 2024-08-23 10:24 | disposition home or self-care (01) ==
PROVIDERS: PCP Internal Medicine; Visit Provider Hospitalist
DX: J41.8 Mixed simple and mucopurulent chronic bronchitis (principal); G47.33 Obstructive sleep apnea (adult) (pediatric); Z99.89 Dependence on other enabling machines and devices; R91.8 Other nonspecific abnormal finding of lung field; C82.92 Follicular lymphoma, unspecified, intrathoracic lymph nodes; R59.1 Generalized enlarged lymph nodes
CPT/HCPCS: 99214

== ENCOUNTER → 2024-08-23 09:35 | Outpatient (BNVA) | payer OTHER, SELFPAY | PROVIDERS: PCP Internal Medicine; Visit Provider Hospitalist | DX: R91.8 Other nonspecific abnormal finding of lung field (principal); C82.92 Follicular lymphoma, unspecified, intrathoracic lymph nodes; R59.1 Generalized enlarged lymph nodes; J41.8 Mixed simple and mucopurulent chronic bronchitis; G47.33 Obstructive sleep apnea (adult) (pediatric); Z99.89 Dependence on other enabling machines and devices; Z23 Encounter for immunization | CPT/HCPCS: 90471; 90656 ==